=== PATIENT | male | born 1960 | race Caucasian/White ===

== ENCOUNTER 2016-06-29 12:33 | Emergency (ER) | payer BC ==
[~2016-06-29] VITALS: Ht 170.2 cm; Wt 98.4 kg
[2016-06-29 13:00] VITALS: BP 134/86; PULSE 71; RESP 18; TEMP 98.7; O2SAT 97
[2016-06-29] MEDS ORDERED: LISI10TA3 PO (13:44)
[2016-06-29] MEDS ORDERED: ATOR10TA15 PO (13:44)
[2016-06-29] MEDS ORDERED: SODIUM CHLORIDE 0.9% FLUSH 5 ML FLUSH IVF PRN (14:00)
[2016-06-29 14:05] VITALS: O2SAT 97
[2016-06-29 14:07] LABS: AUTOMATED NEUTROPHIL # 3.6 TH/MM3 (1.8-7.7); BASOPHIL % 0.6 % (0.0-2.0); EOSINOPHIL # 0.1 TH/MM3 (0-0.4); EOSINOPHIL % 2.1 % (0.0-4.0); HEMATOCRIT 45.1 % (39.0-51.0); HEMO FLAGS DIFF FINAL; LYMPH % 30.4 % (9.0-44.0); LYMPHOCYTE # 1.9 TH/MM3 (1.0-4.8); MEAN CELL VOLUME 87.1 FL (80.0-100.0); MEAN CORPUSCULAR HEMOGLOBIN 29.8 PG (27.0-34.0); MEAN CORPUSCULAR HGB CONC 34.3 % (32.0-36.0); MONO % 7.7 % (0.0-8.0); NEUT % 59.2 % (16.0-70.0); PLATELET COUNT 184 TH/MM3 (150-450); RED BLOOD COUNT 5.18 MIL/MM3 (4.50-5.90); RED CELL DISTRIBUTION WIDTH 12.8 % (11.6-17.2); WHITE BLOOD COUNT 6.1 TH/MM3 (4.0-11.0)
[2016-06-29 14:08] LABS: BLOOD, URINE NEG (NEG); GLUCOSE,URINE NEG (NEG); KETONE, URINE NEG (NEG); NITRITE,URINE NEG (NEG); PH, URINE 5.5 (5.0-8.5)
[2016-06-29 14:09] LABS: METHOD OF COLLECTION CLEAN CATCH; URINE COLOR STRAW (YELLW/STRAW)
[2016-06-29 14:15] LABS: CHLORIDE 104 MEQ/L (98-107); SODIUM (NA) 140 MEQ/L (136-145)
[2016-06-29 14:16] LABS: COMMENT (UR) CULT NOT INDICATED; CULTURE IF INDICATED CULT NOT INDICATED; SQUAMOUS EPITHELIAL CELL URINE 0-5 /hpf (0-5)
[2016-06-29 14:19] LABS: ANION GAP 7 MEQ/L (5-15); BLOOD UREA NITROGEN 17 MG/DL (7-18)
[2016-06-29 14:21] LABS: ALT (GPT) 56 U/L (12-78)
[2016-06-29 14:22] LABS: AST (GOT) 30 U/L (15-37); GLOMERULAR FILTRATION RATE 69 ML/MIN (>89)
[2016-06-29 14:23] LABS: TOTAL BILIRUBIN ADULT 0.5 MG/DL (0.2-1.0)
[2016-06-29 14:24] LABS: ALKALINE PHOSPHATASE 61 U/L (45-117)
[2016-06-29] MEDS ORDERED: HYDR-3533 PO (15:05)
--- NOTE | 2016-06-29 15:05 | RADHPO ---
EXAM DATE/TIME: 06/29/2016 14:28 [place] COMPARISON: No previous studies available for comparison. INDICATIONS : Right upper quadrant pain. MEDICAL HISTORY : Hypercholesterolemia. Hypertension. Renal calculi. Irregular heartbeat. SURGICAL HISTORY : Left rotator cuff repair. Right bicep hematoma evacuation. ENCOUNTER: Initial ACUITY: 3 days PAIN SCORE: 7/10 LOCATION: Right upper quadrant MEASUREMENTS: LIVER: 20.5 cm length COMMON DUCT: 5 mm RIGHT KIDNEY: 11.1 x 4.8 x 5.3 cm FINDINGS: LIVER: The liver is diffusely echogenic and mildly heterogeneous. No mass or ductal dilatation. Hepatopedal flow within the portal vein. COMMON DUCT: No intraluminal mass or stone visualized. GALLBLADDER: Contains no stones, demonstrates no wall thickening or pericholecystic fluid. PANCREAS: The visualized portions are within normal limits. Only small portions of the pancreatic head are visu alized. RIGHT KIDNEY: No evidence of hydronephrosis, stone, or mass. CONCLUSION: 1. Hepatic steatosis. Joaquín Forrester Jr., MD on June 29, 2016 at 15:02 Board Certified Radiologist. This report was verified electronically.
--- NOTE | 2016-06-29 15:05 | PD ---
HPI Chief Complaint: Abdominal Pain Time Seen by Provider: 13:49 Travel History International Travel<30 days: No Contact w/Intl Traveler<30days: No Traveled to known affect area: No History of Present Illness HPI So 55-year-old man presents emergent department postprandial right upper quadrant abdominal pain ongoing for the past 2-3 days. He states it hurts sometimes CT breath as well in the same area. He was to see if it was his gallbladder so ate a bunch of sausage last night which markedly worsened his pain. He's had nausea but no vomiting. No fevers or chills. He has been urinating more than normal minimally constipated. His a history of kidney stones but no history of gallbladder problems. No history of abdominal surgery. History Past Medical History Narrative Medical Hypertension Hyperlipidemia Tetanus Vaccination: Unknown Influenza Vaccination: Yes Social History Alcohol Use: Yes (Rarely) Tobacco Use: No Allergies-Medications (Allergen,Severity, Reaction): Coded Allergies: No Known Allergies (Unverified , 06/29/16) Reported Meds & Prescriptions Reported Meds & Active Scripts Active Reported Atorvastatin (Atorvastatin Calcium) 10 Mg Tab 10 Mg PO HS Lisinopril 10 Mg Tab 10 Mg PO DAILY Review of Systems Except as stated in HPI: all other systems reviewed are Neg Physical Exam Narrative GENERAL: Well-appearing 55 year-old man, no acute distress. SKIN: Warm and dry. HEAD: Atraumatic. Normocephalic. EYES: Pupils equal and round. No scleral icterus. No injection or drainage. ENT: No nasal bleeding or discharge. Mucous membranes pink and moist. NECK: Trachea midline. No JVD. CARDIOVASCULAR: Regular rate and rhythm. No murmur appreciated. RESPIRATORY: No accessory muscle use. Clear to auscultation. Breath sounds equal bilaterally. GASTROINTESTINAL: Abdomen is flat and soft. He has moderate epigastric and right upper quadrant tenderness. Negative Diallo's. No rebound or guarding. MUSCULOSKELETAL: No obvious deformities. No clubbing. No cyanosis. No edema. NEUROLOGICAL: Awake and alert. No obvious cranial nerve deficits. Motor grossly within normal limits. Normal speech. PSYCHIATRIC: Appropriate mood and affect; insight and judgment normal. Data Data Last Documented VS Vital Signs Date Time Temp Pulse Resp B/P Pulse Ox O2 Delivery O2 Flow Rate FiO2 06/29/16 14:05 97 Room Air 06/29/16 13:00 98.7 71 18 134/86 Orders Complete Blood Count With Diff (06/29/16 13:49) Comprehensive Metabolic Panel (06/29/16 13:49) Lipase (06/29/16 13:49) Urinalysis - C+S If Indicated (06/29/16 13:49) Us Abdomen Gallbladder (06/29/16 ) Iv Access Insert/Monitor (06/29/16 13:49) Ecg Monitoring (06/29/16 13:49) Oximetry (06/29/16 13:49) Sodium Chloride 0.9% Flush (Ns Flush) (06/29/16 14:00) Consult General Surgery (06/29/16 ) Labs Laboratory Tests Test 06/29/16 14:00 White Blood Count 6.1 TH/MM3 Red Blood Count 5.18 MIL/MM3 Hemoglobin 15.5 GM/DL Hematocrit 45.1 % Mean Corpuscular Volume 87.1 FL Mean Corpuscular Hemoglobin 29.8 PG Mean Corpuscular Hemoglobin 34.3 % Concent Red Cell Distribution Width 12.8 % Platelet Count 184 TH/MM3 Mean Platelet Volume 10.0 FL Neutrophils (%) (Auto) 59.2 % Lymphocytes (%) (Auto) 30.4 % Monocytes (%) (Auto) 7.7 % Eosinophils (%) (Auto) 2.1 % Basophils (%) (Auto) 0.6 % Neutrophils # (Auto) 3.6 TH/MM3 Lymphocytes # (Auto) 1.9 TH/MM3 Monocytes # (Auto) 0.5 TH/MM3 Eosinophils # (Auto) 0.1 TH/MM3 Basophils # (Auto) 0.0 TH/MM3 CBC Comment DIFF FINAL Differential Comment Urine Collection Type CLEAN CATCH Urine Color STRAW Urine Turbidity CLEAR Urine pH 5.5 Urine Specific [place] 1.010 Urine Protein NEG mg/dL Urine Glucose (UA) NEG mg/dL Urine Ketones NEG mg/dL Urine Occult Blood NEG Urine Nitrite NEG Urine Bilirubin NEG Urine Leukocyte Esterase NEG Urine Squamous Epithelial 0-5 /hpf Cells Urine Amorphous Sediment FEW Microscopic Urinalysis Comment CULT NOT INDICATED Urine Collection Time 1400 Sodium Level 140 MEQ/L Potassium Level 4.0 MEQ/L Chloride Level 104 MEQ/L Carbon Dioxide Level 29.0 MEQ/L Anion Gap 7 MEQ/L Blood Urea Nitrogen 17 MG/DL Creatinine 1.10 MG/DL Estimat Glomerular Filtration 69 ML/MIN Rate Random Glucose 110 MG/DL Calcium Level 9.2 MG/DL Total Bilirubin 0.5 MG/DL Aspartate Amino Transf 30 U/L (AST/SGOT) Alanine Aminotransferase 56 U/L (ALT/SGPT) Alkaline Phosphatase 61 U/L Total Protein 7.3 GM/DL Albumin 3.8 GM/DL Lipase 149 U/L [facility] Medical Decision Making Medical Screen Exam Complete: Yes Emergency Medical Condition: Yes Interpretation(s) LABS: CBC unremarkable CMP is unremarkable Lipase is normal UA unremarkable My review of ultrasound: Negative Differential Diagnosis Cholecystitis, gastritis, pancreatitis, other Narrative Course Medical decision making is a 55 year-old man) the right upper quadrant pain shortly suggestive of gallbladder disease. Ultrasound labs are unremarkable. Dr. Hugo was in the department I discussed patient with him and he evaluated him at the bedside. He will follow-up with him for HIDA scan next week. Diagnosis Primary Impression: Biliary colic Referrals: Paul Curtis MD 3 days Additional Instructions: Follow-up with Dr. Garza Return to the emergency department for any new or worsening symptoms. Avoid fatty foods. He's Lortab if needed for pain. Med/Other Pt SpecificInfo: Prescription(s) given Scripts Hydrocodone-Acetaminophen (Lortab)5-325 Mg Tab1-2 Tab PO Q6H PRN (PAIN) #12 TAB Prov:Wesley Batista MD 06/29/16 Disposition: 01 DISCHARGE HOME Condition: Stable Wesley Batista MD Jun 29, 2016 15:05
[2016-06-29 15:15] VITALS: BP 146/81; PULSE 71; RESP 14; O2SAT 99
--- NOTE | 2016-06-29 19:51 | MB ---
cc: MD MARKY,[facility] DATE OF CONSULTATION: 06/29/2016. REASON FOR CONSULTATION: Right upper quadrant pain, nausea, vomiting and hypertension. HISTORY OF PRESENT ILLNESS: This 55-year-old male presented to the emergency department with right upper quadrant and epigastric pain that has been there for about two to three days. It comes and goes. The patient states that he was thinking it was his gallbladder so he ate some sausage which worsened the pain. He had nausea but no vomiting. Now he is not in pain. He also states that he has been urinating more. He has a history of kidney stones. PAST MEDICAL HISTORY: 1. Hypertension. 2. Hyperlipidemia. PAST SURGICAL HISTORY: Negative. MEDICATIONS: 1. Atorvastatin. 2. Lisinopril. SOCIAL HISTORY: He does drink socially but does not smoke. PHYSICAL EXAMINATION: GENERAL: The physical examination reveals a pleasant 55-year-old gentleman in no acute distress. HEAD, EYES, EARS, NOSE, THROAT: Normocephalic. No trauma to the head. Pupils equal and reactive. Extraocular muscles intact. NECK: Bilateral carotid pulses. No bruits. CHEST: Clear. Bilateral breath sounds. HEART: Regular rhythm. ABDOMEN: Soft. Active bowel sounds. No rebound. No guarding. No masses. On palpation, the patient is not tender at all. He is very soft and on sitting up and succussion of both renal fossae, the patient does not have any tenderness either. PELVIS: Stable. EXTREMITIES: Grossly within normal limits. IMPRESSION AND RECOMMENDATIONS: I reviewed laboratory and diagnostic procedures. It is quite unclear what is causing the patient's pain. Indeed, the very presentation could be consistent with biliary colic. Nonetheless, the patient does not have cholelithiasis. His gallbladder is not distended, there is no fluid around it and it is not thickened, so the chances of this being biliary colic are small, but not negligible. The patient is now symptom-free. Considering this situation, I would like to see a HIDA scan on this gentleman, and based on that, we can decide further care. On one hand, I do not want to give him unnecessary surgery, but on the other hand, I do not want to delay his care if this indeed is related to the gallbladder unit and biliary dyskinesia. The patient will go home now that he feels better and will have a HIDA scan as an outpatient and then we will go from there. Thank you very much for the referral. Paul CHANEY/REBEKAH /7:31 PM /7:44 PM
== END 2016-06-29 15:34 | disposition home or self-care (01) ==
LOC: PHED 12:33
DX: K80.50 Calculus of bile duct without cholangitis or cholecystitis without obstruction (principal)
CPT/HCPCS: 76705; 80053; 81001; 83690; 85025